=== PATIENT | female | born 1990 | race Asian ===

== ENCOUNTER 2019-05-12 07:44 | Outpatient (CLI) | payer OTHER | END 2019-05-12 20:12 | disposition home or self-care (01) | LOC: MLB 07:44 → EEVIPCON 07:44 → MLB 20:12 | PROVIDERS: ATTEND Family Medicine | DX: E55.9 Vitamin D deficiency, unspecified (principal) | CPT/HCPCS: 36415; 82306 ==

== ENCOUNTER 2020-03-03 05:58 | Outpatient (CLI) | payer OTHER ==
[2020-03-03 08:09] LABS: BASOPHILS # (AUTO) 0.1 K/uL (0.00-0.22); BASOPHILS % (AUTO) 0.5 % (0.0-2.0); EOSINOPHILS # (AUTO) 0.3 K/uL (0-0.4); EOSINOPHILS % (AUTO) 3.1 % (0.0-4.0); HEMATOCRIT 41.7 % (36-48); HEMOGLOBIN 13.8 g/dL (12.0-16.0); LYMPHOCYTES # (AUTO) 2.4 K/uL (2.5-16.5); LYMPHOCYTES % (AUTO) 25.2 % (20.5-51.1); MEAN CORPUSCULAR HEMOGLOBIN 30 pg (27-31); MEAN CORPUSCULAR HGB CONC 33 g/dL (33-37); MEAN CORPUSCULAR VOLUME 91.6 fL (80-94); MONOCYTES # (AUTO) 0.9 K/uL (0.8-1.0); MONOCYTES % (AUTO) 9.8 % (1.7-9.3); NEUTROPHILS # (AUTO) 5.7 K/uL (1.8-7.7); NEUTROPHILS % (AUTO) 61.4 % (42.2-75.2); PLATELET COUNT (AUTO) 189 K/uL (140-450); RED BLOOD CELL COUNT(AUTO) 4.56 MIL/uL (4.20-5.40); WHITE BLOOD COUNT (AUTO) 9.4 K/uL (4.8-10.8)
[2020-03-03 09:11] LABS: ALBUMIN 3.8 g/dL (3.4-5.0); ANION GAP 13.7 (8-16); CARBON DIOXIDE 25.3 mmol/L (21-32); CHOL/HDL RATIO 3.7 (1-4.5); CREATININE 0.7 mg/dL (0.6-1.3); THYROID STIMULATING HORMONE 3.16 uIU/mL (0.34-3.74); TOTAL BILIRUBIN 0.2 mg/dL (0.0-1.0)
== END 2020-03-03 19:07 | disposition home or self-care (01) ==
LOC: MLB 05:58
PROVIDERS: ATTEND Family Medicine
DX: E55.9 Vitamin D deficiency, unspecified (principal)
CPT/HCPCS: 36415; 80053; 82306; 84443; 85025

== ENCOUNTER 2020-03-07 07:40 | Emergency (ER) | payer OTHER, SELFPAY ==
[~2020-03-07] VITALS: Ht 157.5 cm; Wt 52.2 kg
[2020-03-07 07:50] VITALS: BP 131/91
--- NOTE | 2020-03-07 07:54 | NUR ---
COVID SWAB DONE.
--- NOTE | 2020-03-07 07:54 | NUR ---
C/O LOSS OF TASTE/SMELL X TODAY, SORE THROAT X YESTERDAY, STUFFY NOSE X 2 DAYS PT IS A RN MST. MED HX: DENIES
[2020-03-07 08:20] VITALS: BP 131/91
--- NOTE | 2020-03-07 08:20 | NUR ---
Patient discharged with v/s stable. Written and verbal after care instructions given and explained. Patient verbalized understanding. Ambulatory with steady gait. All questions addressed prior to discharge. Advised to follow up with PMD.
--- NOTE | 2020-03-08 16:32 | NUR ---
COVID RESULTS COLLECTED, POSITIVE RESULT. RESULT PLACED IN INFECTION CONTROL INBOX.
== END 2020-03-07 08:20 | disposition home or self-care (01) ==
LOC: MED 07:48
DX: U07.1 COVID-19 (principal); R43.8 Other disturbances of smell and taste; R09.81 Nasal congestion; Z88.6 Allergy status to analgesic agent
CPT/HCPCS: 99283; U0003